=== PATIENT | male | born 1945 | race Caucasian/White ===

== ENCOUNTER 2021-12-23 09:46 | Emergency (ER) | payer MEDICARE, SELFPAY ==
[2021-12-23 09:49] VITALS: BP 159/76; PULSE 68; RESP 20; TEMP 36.4; O2SAT 95; BMI 31.1
--- NOTE | 2021-12-23 10:31 | ED.NURSE ---
Pt cleaned up and clean bedding, gown, and brief placed. Pt has start of pressure sore on buttocks and skin breakdown in groin. advised.
--- NOTE | 2021-12-23 10:52 | ED.MALEGU ---
HPI - Male Genitourinary General Chief complaint: Urogenital Problems, Male Stated complaint: urinary incontinence Time Seen by Provider: 12/23/21 10:47 History of Present Illness HPI Narrative: This 76-year-old male comes in because of urinary incontinence that began early this morning about 6 hours prior to arrival. He states that he has had incontinence in the past. He lives alone at home and states that everything is going okay there. He states that he is placing some cream on a sore on his bottom. He states that he can get up and take care of daily activities without any problem. He denies having any fevers. Related Data Home Medications Medication Instructions Recorded Confirmed allopurinol 100 mg tablet 200 mg PO DAILY 12/23/21 12/23/21 amlodipine 5 mg tablet 5 mg PO DAILY 12/23/21 12/23/21 apixaban 5 mg tablet (Eliquis) 5 mg PO DAILY 12/23/21 12/23/21 atorvastatin 80 mg tablet 80 mg PO DAILY 12/23/21 12/23/21 carvedilol 25 mg tablet 25 mg PO Q12H 12/23/21 12/23/21 clopidogrel 75 mg tablet 75 mg PO DAILY 12/23/21 12/23/21 ergocalciferol (vitamin D2) 1,250 1,250 mcg PO DIRECTED 12/23/21 12/23/21 mcg (50,000 unit) capsule furosemide 40 mg tablet mg PO Q12H 12/23/21 glipizide 10 mg tablet 10 mg PO DAILY 12/23/21 12/23/21 hydralazine 25 mg tablet 25 mg PO Q8H 12/23/21 12/23/21 hydrocodone 7.5 mg-acetaminophen 1 tab PO Q6H PRN 12/23/21 12/23/21 325 mg tablet isosorbide mononitrate 120 mg 120 mg PO BID 12/23/21 12/23/21 tablet,extended release 24 hr nystatin 100,000 unit/gram topical 1 applic topical TID 12/23/21 12/23/21 powder (Nystop) omeprazole 20 mg capsule,delayed 20 mg PO DAILY 12/23/21 12/23/21 release pravastatin 40 mg tablet 40 mg PO HS 12/23/21 12/23/21 tamsulosin 0.4 mg capsule 0.8 mg PO DAILY 12/23/21 12/23/21 Allergies Allergy/AdvReac Type Severity Reaction Status Date / Time No Known Drug Allergies Allergy Verified 12/23/21 09:59 Review of Systems Status of ROS: Reports: 10 or more systems reviewed and unremarkable except as noted in History and below Narrative: Constitutional: No fevers, no weight gain or loss. Eyes: No discharge. No vision changes. HENT: No congestion, no sore throat, no ear pain. Cardiovascular: No chest pain, no palpitations. Respiratory: No shortness of breath, no wheezes, no cough. Gastrointestinal: No abdominal pain, no vomiting, no diarrhea. Genitourinary: Urinary incontinence. No hematuria or cloudy urine. No pain when passing urine. He denies any sign of urinary retention. Musculoskeletal: Normal range of motion. Skin: No rashes, no pruritis. Neurological: No dizziness, weakness, sensory change, speech change. Endo/Heme/Allergies: No bruising or bleeding. No polydipsia. Pysch: no suicidality, no anxiety, no insomnia. All other systems reviewed and are negative. [facility] Social History Smoking Status: Never smoker Do you use any of these nicotine containing products: None How often do you have a drink containing alcohol: never AUDIT-C Alcohol total score: 0 Non-prescribed substance use: denies use Exam Narrative: Exam Narrative: Constitutional: Well-developed, well-nourished, no acute distress. HEENT: Normocephalic, atraumatic. Neck: Normal range of motion. Nontender. Supple. Heart: Regular. No murmurs. Normal rate. Intact distal pulses. Lungs: Clear to auscultation. No chest discomfort. No wheezes, rhonchi, or rales. Abdomen: Normal bowel sounds. Nontender. No rebound tenderness. Genitalia: Deferred. Back: No midline tenderness. Normal range of motion. Extremities: Normal range of motion. No injury. Skin: No rash. Warm. No erythema or pallor. Neurologic: No altered sensation. No weakness. Alert and oriented. Psychiatric: No suicidality. No anxiety or depression. No insomnia. Nursing notes and vitals signs are reviewed. Const: Vital Signs, click to edit/add: Vital Signs - 24 hr 12/23/21 09:49 Temperature 97.5 F L Pulse Rate [Right Pulse Oximeter] 68 Respiratory Rate 20 Blood Pressure [Ri ght Upper Arm] 159/76 H Pulse Oximetry 95 Oxygen Delivery Me thod Room Air Course Vital Signs Vital signs: Initial Vital Signs Temperature 97.5 F L 12/23/21 09:49 Temperature Source Temporal Artery Scan 12/23/21 09:49 Pulse Rate 68 12/23/21 09:49 Respiratory Rate 20 12/23/21 09:49 Blood Pressure 159/76 H 12/23/21 09:49 Blood Pressure Mean 103 12/23/21 09:49 Blood Pressure Position Semi-Fowlers 12/23/21 09:49 Pulse Oximetry 95 12/23/21 09:49 Oxygen Delivery Method 12/23/21 09:49 Vital Signs Temperature 97.5 F L 12/23/21 09:49 Pulse Rate 68 12/23/21 09:49 Respiratory Rate 20 12/23/21 09:49 Blood Pressure 159/76 H 12/23/21 09:49 Pulse Oximetry 95 12/23/21 09:49 Oxygen Delivery Method 12/23/21 09:49 Temperature 97.5 F L 12/23/21 09:49 Pulse Rate 68 12/23/21 09:49 Respiratory Rate 20 12/23/21 09:49 Blood Pressure 159/76 H 12/23/21 09:49 Pulse Oximetry 95 12/23/21 09:49 Oxygen Delivery Method 12/23/21 09:49 MDM - Male Genitourinary MDM Narrative Medical decision making narrative: This patient comes in with urinary incontinence. This is not a new symptom for him. A bladder scan shows 51 mL of urine so he is not retaining urine. Urinalysis also shows no sign of infection. The patient lives alone at home and there was some concern about his ability to care for himself. He repeatedly states that everything seems to be doing well at home. I did ask if he would be interested in a social service consult to further evaluate this and be come aware of resources. He was agreeable to this plan. Molecular Technologist did offer services which he generally was not interested in. He is of sound mind and able to make appropriate decisions for himself. He is okay medically to return home. I advised that he use Depends if he is having ongoing urinary incontinence. Lab Data Labs: Lab Results 12/23/21 Range/Units 11:40 Urine Color Yellow (Yellow) Urine Appearance Clear (Clear) Urine pH 7.5 (5.0-8.5) Ur Specific [place] 1.015 (1.000-1.030) Urine Protein Trace A (Negative) Urine Glucose (UA) Negative (Negative) Urine Ketones Negative (Negative) Urine Blood Negative (Negative) Urine Nitrite Negative (Negative) Urine Bilirubin Negative (Negative) Urine Urobilinogen 1.0 (0.2-1.0) Ur Leukocyte Esterase Negative (Negative) Urine RBC 0-2 (0-2) Urine WBC 0-2 (0-5) Ur Squamous Epith Cells Few (None-Few) Urine Bacteria None (None) Discharge Plan Discharge Clinical Impression: Bladder incontinence Patient Disposition: Home, Self-Care Condition: Stable Additional Instructions: Continue current plans. Use Depends if urinary incontinence is persistent. Follow up with MD or return if worsening. Prescriptions: No Action allopurinol 100 mg tablet 200 mg PO DAILY Label Comments: TAKE 2 TABLETS BY MOUTH ONCE DAILY amlodipine 5 mg tablet 5 mg PO DAILY Label Comments: TAKE 1 TABLET BY MOUTH ONCE DAILY Eliquis 5 mg tablet 5 mg PO DAILY Label Comments: TAKE 1 TABLET BY MOUTH IN THE MORNING AND 1 IN THE EVENING atorvastatin 80 mg tablet 80 mg PO DAILY Label Comments: TAKE 1 TABLET BY MOUTH AT BEDTIME carvedilol 25 mg tablet 25 mg PO Q12H Label Comments: TAKE 1 TABLET BY MOUTH IN THE MORNING AND 1 IN THE EVENING WITH MEALS clopidogrel 75 mg tablet 75 mg PO DAILY Label Comments: TAKE 1 TABLET BY MOUTH ONCE DAILY ergocalciferol (vitamin D2) 1,250 mcg (50,000 unit) capsule 1,250 mcg PO DIRECTED Label Comments: TAKE 1 CAPSULE BY MOUTH EVERY MONDAY AND MONDAY furosemide 40 mg tablet PO Q12H Label Comments: TAKE 1 TABLET BY MOUTH EVERY MORNING AND 1 TABLET EVERY AFTERNOON. HOLD IF WEIGHT LESS THAN 220. TAKE 2 TABS TWICE DAILY IF WEIGHT GREATER THAN 230 glipizide 10 mg tablet 10 mg PO DAILY Label Comments: TAKE 1 TABLET BY MOUTH ONCE DAILY BEFORE A MEAL hydralazine 25 mg tablet 25 mg PO Q8H Label Comments: TAKE 1 TABLET BY MOUTH EVERY 8 HOURS hydrocodone-acetaminophen 7.5-325 mg tablet 1 tab PO Q6H PRN Label Comments: TAKE 1 TABLET BY MOUTH EVERY 6 HOURS NEEDED FOR PAIN . DO NOT EXCEED 4000 MG OF ACETAMINOPHEN PER 24 HOURS isosorbide mononitrate 120 mg tablet extended release 24 hr 120 mg PO BID Label Comments: TAKE 1 TABLET BY MOUTH TWICE DAILY BEFORE MEAL(S) nystatin [Nystop] 100,000 unit/gram powder 1 applic TOPICAL TID Label Comments: APPLY 1 STRIP TOPICALLY TO AFFECTED AREA THREE TIMES DAILY omeprazole 20 mg capsule,delayed release(DR/EC) 20 mg PO DAILY Label Comments: TAKE 1 CAPSULE BY MOUTH ONCE DAILY BEFORE A MEAL pravastatin 40 mg tablet 40 mg PO HS Label Comments: TAKE 1 TABLET BY MOUTH AT BEDTIME tamsulosin 0.4 mg capsule 0.8 mg PO DAILY Label Comments: TAKE 2 CAPSULES BY MOUTH ONCE DAILY AFTER A MEAL Follow Up/Referrals: Jose Luis Patel MD [Primary Care Provider] - Stand Alone Forms: Workable Info Instructions
[2021-12-23 11:50] LABS: Appearance Urine Clear (Clear); Bilirubin Urine Negative (Negative); Blood Urine Negative (Negative); Color Urine Yellow (Yellow); Glucose Urine Negative (Negative); Ketones Urine Negative (Negative); Leukocyte Esterase Urine Negative (Negative); Nitrite Urine Negative (Negative); Protein Urine Trace (Negative); Specific Gravity Urine 1.015 (1.000-1.030); pH Urine 7.5 (5.0-8.5)
[2021-12-23 12:01] LABS: RBC Urine 0-2 (0-2); Squamous Epithelial Cell Urine Few (None-Few); WBC Urine 0-2 (0-5)
[2021-12-23 12:30] VITALS: BP 144/69; PULSE 58; RESP 14; O2SAT 96
[2021-12-23 13:00] VITALS: BP 150/67; PULSE 67; RESP 14; O2SAT 96
[2021-12-23 13:30] VITALS: BP 158/69; PULSE 63; RESP 14; O2SAT 96
[2021-12-23 14:00] VITALS: BP 150/74; PULSE 64; RESP 14; O2SAT 96
--- NOTE | 2021-12-23 14:18 | PC.SOCIAL ---
Social work: Met with pt at request of for discharge planning. t states he lives alone on first floor of apartment building in [place]. Pt reports he has no concerns regarding safety at home and is able to meet all of his needs. Pt does all his own cooking, cleaning and driving. Pt states he has family and friends he could call on if needed, but does not feel he needs additional assistance at this time. Provided pt with resource list for [id number] for [facility] and a list of home delivered meal services. Pt states he will consider if this is a helpful resource and is capable of arranging this if needed. Pt states his brother James will pick him up for transport home at discharge. Pt is aware of how to contact case management social worker if additional resources are needed.
== END 2021-12-23 14:34 | disposition home or self-care (01) ==
PROVIDERS: Emergency Provider Emergency Medicine Emergency Medical Services; PCP Family Medicine
DX: R32 Unspecified urinary incontinence (principal)
CPT/HCPCS: 81001; 99283; 99285

== ENCOUNTER 2022-01-05 11:05 | Inpatient (IN) | payer MEDICARE, SELFPAY ==
[2022-01-05] VITALS (11 sets, daily range): BP systolic 152–181; BP diastolic 68–91; PULSE 54–64; RESP 10–22; TEMP 36.6–37.1; O2SAT 94–98; BMI 32.1
--- NOTE | 2022-01-05 11:40 | ED.FALL ---
HPI - Fall General Time Seen by Provider: 11:41 Date Seen: 01/05/22 Chief Complaint: Fall/Minor Trauma Stated Complaint: Fell out of bed Time Seen by Provider: 01/05/22 11:40 Source: patient, RN notes reviewed and old records reviewed Mode of arrival: EMS Limitations: no limitations History of Present Illness HPI Narrative: Kobe is a very pleasant 76-year-old gentleman who lives alone and now comes in to the emergency room via EMS after being found on the floor near his bathroom. Patient notes that he got up at 0100 hours to use the bathroom and fell on the floor. This was a carpeted floor. He denies being knocked out but the next thing he knew his brother was waking him up at 1000 hours. EMS was called and a C-collar was placed although he is very unhappy about this. At this time he denies any headache, neck pain, difficulty breathing, chest pain, back pain, numbness or tingling. Nursing had removed his collar as it was making him very agitated and actually causing him to move more. He is cooperative and lying still at this time. Patient is stating that he is not able to live alone anymore and would like to be placed in assisted living or a intermediate. He denies recent fever, cough, cold. Nursing staff notes that he has redness along his groin. Patient denies any prodromal symptoms prior to fall. Patient had been seen on December 23 in our emergency room for incontinence. There was no evidence of UTI. MD complaint: fall Related Data Home Medications Medication Instructions Recorded Confirmed allopurinol 100 mg tablet 200 mg PO DAILY 12/23/21 12/23/21 amlodipine 5 mg tablet 5 mg PO DAILY 12/23/21 12/23/21 apixaban 5 mg tablet (Eliquis) 5 mg PO DAILY 12/23/21 12/23/21 atorvastatin 80 mg tablet 80 mg PO DAILY 12/23/21 12/23/21 carvedilol 25 mg tablet 25 mg PO Q12H 12/23/21 12/23/21 clopidogrel 75 mg tablet 75 mg PO DAILY 12/23/21 12/23/21 ergocalciferol (vitamin D2) 1,250 1,250 mcg PO DIRECTED 12/23/21 12/23/21 mcg (50,000 unit) capsule furosemide 40 mg tablet mg PO Q12H 12/23/21 glipizide 10 mg tablet 10 mg PO DAILY 12/23/21 12/23/21 hydralazine 25 mg tablet 25 mg PO Q8H 12/23/21 12/23/21 hydrocodone 7.5 mg-acetaminophen 1 tab PO Q6H PRN 12/23/21 12/23/21 325 mg tablet isosorbide mononitrate 120 mg 120 mg PO BID 12/23/21 12/23/21 tablet,extended release 24 hr nystatin 100,000 unit/gram topical 1 applic topical TID 12/23/21 12/23/21 powder (Nystop) omeprazole 20 mg capsule,delayed 20 mg PO DAILY 12/23/21 12/23/21 release pravastatin 40 mg tablet 40 mg PO HS 12/23/21 12/23/21 tamsulosin 0.4 mg capsule 0.8 mg PO DAILY 12/23/21 12/23/21 Allergies Allergy/AdvReac Type Severity Reaction Status Date / Time No Known Drug Allergies Allergy Verified 01/05/22 11:12 Review of Systems Status of ROS: Reports: 10 or more systems reviewed and unremarkable except as noted in History and below Const: Denies: fever, chills or change in weight Eyes: Reports: eye discharge and dry eyes; Denies: change in vision ENMT: Denies: throat pain, neck pain, difficulty swallowing, hoarseness or vertigo Cardio: Denies: chest pain, palpitations, edema, swelling of feet/ankles or shortness of breath with exertion Resp: Denies: shortness of breath, cough or wheezing GI: Denies: abdominal pain, nausea, vomiting, diarrhea or difficulty swallowing : Denies: painful urination Musculo: Denies: back pain or neck pain Integ/Breast: Reports: redness (Left groin) Neuro: Denies: headache, numbness in extremities, weakness in extremities or vertigo Psych: Denies: anxiety Endo: Denies: excessive urination or excessive thirst Jayant/Lymph: Denies: easy bruising Allergy/Immuno: Denies: wheezing PFSH PFSH Social History Smoking Status: Never smoker Do you use any of these nicotine containing products: None Second hand tobacco smoke exposure: No How often do you have a drink containing alcohol: never AUDIT-C Alcohol total score: 0 Non-prescribed substance use: denies use service: No Exam Narrative: Exam Narrative: Patient is alert and oriented. Patient very much minimizes complaints. No acute distress. GCS of 15. Patient has right periorbital erythema. Both eyelashes have yellowish discharge. EOM is full. Pupils are reactive. Patient has dry mucous membranes. His speech is normal. Head is otherwise atraumatic normocephalic. No midline cervical tenderness. Heart with regular rate and rhythm. Lungs are clear to auscultation. Abdomen is soft nontender. Patient has erythema with discharge in the right groin. Well-demarcated with no significant drainage. Lower extremity show bruises in various stages of healing, nothing new. Right knee with well-healed surgical incision. Able to lift both legs independently. Bottom of both feet are covered in dirt. No significant lower extremity edema. Examination of the back shows no tenderness down the thoracic or lumbar spine. There is a small area of new bruising over approximately L1. But no underlying tenderness. Patient was able to sit up in bed with assistance. Const: Vital Signs, click to edit/add: Vital Signs - 24 hr 01/05/22 11:13 01/05/22 11:59 01/05/22 12:01 Temperature 98 F Pulse Rate [Apical ] 62 Respiratory Rate 18 Blood Pressure [Le ft Upper Arm] 176/85 H Pulse Oximetry 95 98 96 Oxygen Delivery Me thod Room Air 01/05/22 11:15 01/05/22 11:30 01/05/22 12:00 Temperature Pulse Rate [Apical ] 64 57 L 54 L Respiratory Rate 22 19 Blood Pressure [Le ft Upper Arm] 176/85 H 156/68 H 158/69 H Pulse Oximetry 95 95 Oxygen Delivery Me thod Room Air 01/05/22 12:30 Temperature Pulse Rate [Apical ] 54 L Respiratory Rate 17 Blood Pressure [Le ft Upper Arm] 157/70 H Pulse Oximetry 94 Oxygen Delivery Me thod Documenting provider has reviewed patient's vital signs: yes Course Course Hospital Course: At this time patient's desires to be placed in assisted living or intermediate as he states that he needs more help. He denies any pain at this point but he does appear to be min minimizing that. Given the fact that he is on Eliquis and Plavix and was involved in a fall and inability to arise from the ground for 9 hours, we will go forward with head, cervical spine, facial CTs as well as chest x-ray. Will also check CBC, comprehensive panel, urinalysis, CRP, lactate, creatinine kinase. Patient will placed on panel monitor and oximetry. Will also give patient 500 mL normal saline. Reevaluation(s) Reevaluation #1: Nursing staff at notifies me that patient's hemoglobin is 7.5. Reevaluation #2: Patient has been resting comfortably in the emergency room. Vital Signs Vital signs: Initial Vital Signs Temperature 98 F 01/05/22 11:13 Temperature Source Temporal Artery Scan 01/05/22 11:13 Pulse Rate 62 01/05/22 11:13 Respiratory Rate 18 01/05/22 11:13 Blood Pressure 176/85 H 01/05/22 11:13 Blood Pressure Mean 115 01/05/22 11:13 Blood Pressure Position Supine 01/05/22 11:13 Pulse Oximetry 95 01/05/22 11:13 Oxygen Delivery Method 01/05/22 11:13 Vital Signs Temperature 98 F 01/05/22 11:13 Pulse Rate 62 01/05/22 11:13 Respiratory Rate 18 01/05/22 11:13 Blood Pressure 176/85 H 01/05/22 11:13 Pulse Oximetry 95 01/05/22 11:13 Oxygen Delivery Method 01/05/22 11:13 Temperature 98 F 01/05/22 11:13 Pulse Rate 61 01/05/22 16:00 Respiratory Rate 10 L 01/05/22 16:00 Blood Pressure 178/91 H 01/05/22 16:00 Pulse Oximetry 94 01/05/22 12:30 Oxygen Delivery Method 01/05/22 11:30 MDM - Fall MDM Narrative Medical decision making narrative: 1. Fall-no evidence of skull fracture, intracranial bleed, cervical spine fracture or other injury at this time. No evidence of cardiac arrhythmia to explain fall. However, patient does have hemoglobin of 7.5 with previous value of 8.6. 2. Anemia -hemoglobin 7.5. Type and screen ordered. No evidence of hypoxia or tachycardia at this time although patient is rate controlled. He is also on Eliquis. 3. Failure to thrive -patient notes inability to care for self and is requesting assisted living versus intermediate care. 4. Chronic renal insufficiency-baseline appears to be 2.3. Today's value is 2.5 creatinine. Patient is given 500 mL of normal saline. 5. Right maxillary sinus opacification-questionable fungal infection. 6. Left groin tinea 4. Disposition-admitted under the care of Dr. Garcia. Medical Records Attestation: I reviewed the patient's medical records. Lab Data Attestation: I reviewed the patient's lab results. Labs: Lab Results 01/05/22 01/05/22 01/05/22 Range/Units 12:23 12:30 12:30 WBC 7.17 (4.50-11.00) K/uL RBC 2.36 L (4.30-5.90) m/uL Hgb 7.5 L* (13.5-17.5) gm/dL Hct 23.3 L (37.0-53.0) % MCV 99 (80-100) fL MCH 32 (26-34) pg MCHC 32 (32-36) gm/dL RDW Coeff of Ashish 13.4 (11.5-15.5) % Plt Count 319 (140-440) K/uL Neut % (Auto) 83.0 H (42.0-72.0) % Lymph % (Auto) 6.6 L (20-44) % [place] % (Auto) 7.8 (0.0-11.0) % Eos % (Auto) 2.1 (0.0-7.0) % Baso % (Auto) 0.4 (0.0-3.0) % Neut # (Auto) 6.00 (1.7-7.0) K/uL Lymph # (Auto) 0.50 L (0.90-2.90) K/uL [place] # (Auto) 0.60 (0.00-0.90) K/UL Eos # (Auto) 0.15 (0.00-0.50) K/uL Baso # (Auto) 0.03 (0.00-0.30) K/uL Abs Immat Gran (auto) 0.01 (0.00-0.30) K/uL Sodium 138 (135-149) mmol/L Potassium 4.4 (3.6-5.1) mmol/L Chloride 108 (96-114) mmol/L Carbon Dioxide 23 (20-32) mmol/L BUN 74 H (7-30) mg/dL Creatinine 2.5 H (0.5-1.5) mg/dL Estimated Creat Clear 25.94 Estimated GFR 26 ml/min Glucose 158 H (60-115) mg/dL Lactate (0.5-1.9) mmol/L Calcium 9.0 (8.4-10.6) mg/dL Magnesium 1.9 (1.5-2.6) mg/dL Total Bilirubin 1.0 (0.1-1.5) mg/dL AST 33 (12-35) U/L ALT 19 (4-50) U/L Alkaline Phosphatase 103 (40-150) U/L Total Creatine Kinase 49 L (54-186) U/L C-Reactive Protein 7.6 H (0.5-1.0) mg/dL Total Protein 7.1 (6.0-8.3) g/dL Albumin 3.6 (3.3-5.0) g/dL SARS-CoV-2 (PCR) (Negative) POC Troponin I 0.02 (0.01-0.04) ng/ml Blood Type Antibody Screen 01/05/22 01/05/22 01/05/22 Range/Units 12:30 12:51 13:40 WBC (4.50-11.00) K/uL RBC (4.30-5.90) m/uL Hgb (13.5-17.5) gm/dL Hct (37.0-53.0) % MCV (80-100) fL MCH (26-34) pg MCHC (32-36) gm/dL RDW Coeff of Ashish (11.5-15.5) % Plt Count (140-440) K/uL Neut % (Auto) (42.0-72.0) % Lymph % (Auto) (20-44) % [place] % (Auto) (0.0-11.0) % Eos % (Auto) (0.0-7.0) % Baso % (Auto) (0.0-3.0) % Neut # (Auto) (1.7-7.0) K/uL Lymph # (Auto) (0.90-2.90) K/uL [place] # (Auto) (0.00-0.90) K/UL Eos # (Auto) (0.00-0.50) K/uL Baso # (Auto) (0.00-0.30) K/uL Abs Immat Gran (auto) (0.00-0.30) K/uL Sodium (135-149) mmol/L Potassium (3.6-5.1) mmol/L Chloride (96-114) mmol/L Carbon Dioxide (20-32) mmol/L BUN (7-30) mg/dL Creatinine (0.5-1.5) mg/dL Estimated Creat Clear Estimated GFR ml/min Glucose (60-115) mg/dL Lactate 0.8 (0.5-1.9) mmol/L Calcium (8.4-10.6) mg/dL Magnesium (1.5-2.6) mg/dL Total Bilirubin (0.1-1.5) mg/dL AST (12-35) U/L ALT (4-50) U/L Alkaline Phosphatase (40-150) U/L Total Creatine Kinase (54-186) U/L C-Reactive Protein (0.5-1.0) mg/dL Total Protein (6.0-8.3) g/dL Albumin (3.3-5.0) g/dL SARS-CoV-2 (PCR) Negative SARS-CoV-2 (Negative) POC Troponin I (0.01-0.04) ng/ml Blood Type O Positive Antibody Screen NEGATIVE Imaging Data Chest x-ray: Attestation: I have reviewed the pertinent imaging results. My impression: chronic lung markings Radiologist's impression: No acute cardiopulmonary disease. CT scan - head: Attestation: I have reviewed the pertinent imaging results. My impression: Opacification of the right maxillary sinus. 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 Radiologist's impression: Brain parenchyma and extra-axial spaces: Mild generalized cerebral and cerebellar atrophy. 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 Nonspecific low attenuation white matter changes consistent with chronic microvascular disease. No sign of mass, hemorrhage, or midline shift. Skull base and calvarium: Heterogeneous high density areas in the right maxillary sinus. Opacification of the right ethmoid air cells and right frontal sinus. The other visualized paranasal sinuses and mastoid air cells demonstrate no acute or significant findings. The visualized orbits are grossly unremarkable. No skull fractures. IMPRESSION: 1. No acute intracranial abnormality. 2. High-density material in the right maxillary sinus is nonspecific, and could be hemorrhage or infection, particularly fungal etiologies. Cervical spine x-ray: Attestation: I have reviewed the pertinent imaging results. Radiologist's impression: Vertebrae: Reversal of normal lordosis may be related to muscle spasm or positioning. No fractures or suspicious bony lesions.? Discs and facet joints: Multilevel degenerative changes in the form of disc space narrowing, subchondral sclerosis, and marginal osteophyte formation. Osteoarthritic changes involve the apophyseal joints throughout the cervical spine. Extraspinal findings: Prevertebral soft tissues, visualized airway, and visualized lungs are unremarkable.? IMPRESSION: Degenerative changes. No acute abnormality. orbital CT: My impression: no evidence of fracture Radiologist's impression: no evidence of fracture ECG Data Attestation: I personally reviewed and interpreted this ECG as follows: ECG interpretation date: 01/05/22 Interpretation: Sinus bradycardia at a rate of 57. There is first-degree AV block with a WI interval of 0.236. No acute ST or T-wave changes. 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 Discharge Plan Discharge Clinical Impression: Anemia, Chronic kidney insufficiency, Fall Patient Disposition: Admitted As Inpatient Condition: Improved
--- NOTE | 2022-01-05 11:58 | CRLHL7_ITS ---
For Patients: As a result of the Cures Act, medical imaging exams and procedure reports are released immediately into your electronic medical record. You may view this report before your referring provider. If you have questions, please contact your health care provider. INDICATION: Fall. TECHNIQUE: CT cervical spine without contrast. Coronal and sagittal reformats were generated. COMPARISON: None. FINDINGS: Vertebrae: Reversal of normal lordosis may be related to muscle spasm or positioning. No fractures or suspicious bony lesions. Discs and facet joints: Multilevel degenerative changes in the form of disc space narrowing, subchondral sclerosis, and marginal osteophyte formation. Osteoarthritic changes involve the apophyseal joints throughout the cervical spine. Extraspinal findings: Prevertebral soft tissues, visualized airway, and visualized lungs are unremarkable. IMPRESSION: Degenerative changes. No acute abnormality. Please note that all CT scans at this facility use dose modulation, iterative reconstruction, and/or weight-based dosing when appropriate to reduce radiation dose to as low as reasonably achievable. Dictated by Jeet Dyson MD @ 01/05/2022 1:50:37 PM (Electronically Signed)
--- NOTE | 2022-01-05 11:58 | CRLHL7_ITS ---
For Patients: As a result of the Cures Act, medical imaging exams and procedure reports are released immediately into your electronic medical record. You may view this report before your referring provider. If you have questions, please contact your health care provider. INDICATION: Fall. TECHNIQUE: Chest 1 views. COMPARISON: Chest x-ray from 07/16/2021. FINDINGS: Lungs: Clear lungs. No consolidation. Pleura: No pleural effusion or pneumothorax. Heart and Mediastinum: The cardiomediastinal silhouette is upper normal. The vessels are unremarkable. Bones: Degenerative changes of the right shoulder. IMPRESSION: No acute cardiopulmonary disease. Dictated by Jeet Dyson MD @ 01/05/2022 1:36:27 PM (Electronically Signed)
--- NOTE | 2022-01-05 11:58 | CT_ITS ---
Patient: EUGENIA SOLIS Facility:?[facility] Patient ID:?[id number] Site Patient ID:?[id number]. Site :?[id number] Study:?CT-Facial w/o orbits bilateral-01/05/2022 1:26:12 PM Ordering Physician:?Maxx Roca Final Report: INDICATION: Fall. TECHNIQUE: CT maxillofacial without contrast. Coronal and sagittal reformats were generated. COMPARISON: None. FINDINGS: Facial bones: No fractures or bone lesions. Specifically the nasal bones, temporomandibular joints, maxilla, and mandible appear intact. Orbits and globes: Unremarkable. Globes are intact. No sign of intraorbital hemorrhage or emphysema. Sinuses: Opacification of the right maxillary sinus, with heterogeneous density and areas of central hypodensity. Areas of opacification of the ethmoid sinuses, right greater than left. Opacified right frontal sinus. The other paranasal sinuses are clear. Soft tissues: Unremarkable. IMPRESSION: 1. No facial fractures. 2. Opacification of the right maxillary sinus with high-density material could be hematoma or infection, possibly fungal. Opacification of the ethmoid air cells and right frontal sinus. Please note that all CT scans at this facility use dose modulation, iterative reconstruction, and/or weight-based dosing when appropriate to reduce radiation dose to as low as reasonably achievable. Dictated by Jeet Dyson MD @ 01/05/2022 1:54:15 PM Signed by:?Jeet Dyson MD @01/05/2022 1:54:15 PM (Electronic Signature)
--- NOTE | 2022-01-05 12:06 | SUR.ANES ---
No Anesthesia billing. - Eligio Skinner CRNA
[2022-01-05 12:37] LABS: Lactate* 0.8 mmol/L (0.5-1.9)
[2022-01-05 12:41] LABS: Basophils Absolute Auto 0.03 K/uL (0.00-0.30); Basophils Percent Auto 0.4 % (0.0-3.0); Eosinophils Absolute Auto 0.15 K/uL (0.00-0.50); Eosinophils Percent Auto 2.1 % (0.0-7.0); Hematocrit 23.3 % (37.0-53.0); Immature Granulocytes Abs Auto 0.01 K/uL (0.00-0.30); Lymphocytes Percent Auto 6.6 % (20-44); Mean Corpuscular HGB Conc 32 gm/dL (32-36); Mean Corpuscular Hemoglobin 32 pg (26-34); Mean Corpuscular Volume 99 fL (80-100); Monocytes Percent Auto 7.8 % (0.0-11.0); Platelet Count* 319 K/uL (140-440); RDW Coefficient of Variation % 13.4 % (11.5-15.5); Red Blood Count 2.36 m/uL (4.30-5.90); White Blood Count* 7.17 K/uL (4.50-11.00)
[2022-01-05 12:53] LABS: Hemoglobin* 7.5 gm/dL (13.5-17.5); Slide Review Reflex No
--- NOTE | 2022-01-05 12:57 | ED.NURSE ---
call from lab critical , dr palomo updated
[2022-01-05] MEDS: 0.9 % SODIUM CHLORIDE 500 ML 500 ML IV (13:04)
[2022-01-05 13:14] LABS: Albumin* 3.6 g/dL (3.3-5.0); Chloride* 108 mmol/L (96-114); Sodium* 138 mmol/L (135-149)
[2022-01-05 13:15] LABS: Potassium* 4.4 mmol/L (3.6-5.1)
[2022-01-05 13:16] LABS: Creatinine* 2.5 mg/dL (0.5-1.5); Est. Creatinine Clearance* 25.94; Estimated Glomerular Filt Rate 26 ml/min
[2022-01-05 13:17] LABS: Alkaline Phosphatase* 103 U/L (40-150); Aspartate Amino Transferase* 33 U/L (12-35); Blood Urea Nitrogen* 74 mg/dL (7-30); Carbon Dioxide* 23 mmol/L (20-32); Creatine Kinase* 49 U/L (54-186); Total Protein* 7.1 g/dL (6.0-8.3)
[2022-01-05 13:18] LABS: Alanine Aminotransferase* 19 U/L (4-50); Glucose* 158 mg/dL (60-115); Magnesium* 1.9 mg/dL (1.5-2.6)
[2022-01-05 13:20] LABS: C Reactive Protein* 7.6 mg/dL (0.5-1.0)
[2022-01-05 13:35] LABS: Troponin, Point-of-Care* 0.02 ng/ml (0.01-0.04)
[2022-01-05 13:50] LABS: SARS PCR* Negative SARS-CoV-2 (Negative)
--- NOTE | 2022-01-05 16:49 | P.IMHP_ITS ---
Hospitalist- H&P: HPI History of Present Illness Date Seen: 01/05/22 Chief complaint: Fell out of bed Narrative: Kobe Melgar is a 76 year old male with past medical history of CKD3, Anemia of CKD, hx of Atrial fibrillation (on eliquis), HTN presenting for evaluation of fall. The patient fell out his bed. He does not think he hit his head. This morning his brother came to his residence and found him in his bedroom on the floor. He was too weak to get up. He denied LOC. He denied chest pain, chest pressure, sob. He denies melena or hematochezia. He presented to ED where notable workup showed hgb 7.5, Cr 2.5 (Baseline 2.3-24). CT head and cervical spine showed no acute fx or bleed; XCR no acute infiltrate. Patient states he can no longer live alone and needs NH referral; placement. He currently feels at baseline state. Review of Systems Status of ROS: Reports: 10 or more systems reviewed and unremarkable except as noted in History and below PFSH PFS Social History Smoking Status: Never smoker Do you use any of these nicotine containing products: None Second hand tobacco smoke exposure: No How often do you have a drink containing alcohol: never AUDIT-C Alcohol total score: 0 Non-prescribed substance use: denies use Meds Home Medications and Allergies Home Medications Medication Instructions Recorded Confirmed Type amlodipine 5 mg tablet 5 mg PO DAILY 12/23/21 01/05/22 History apixaban 5 mg tablet (Eliquis) 5 mg PO DAILY 12/23/21 01/05/22 History atorvastatin 80 mg tablet 80 mg PO DAILY 12/23/21 01/05/22 History carvedilol 25 mg tablet 25 mg PO Q12H 12/23/21 01/05/22 History clopidogrel 75 mg tablet 75 mg PO DAILY 12/23/21 01/05/22 History furosemide 40 mg tablet 40 mg PO BID 12/23/21 01/05/22 History glipizide 10 mg tablet 10 mg PO DAILY 12/23/21 01/05/22 History hydralazine 25 mg tablet 25 mg PO TID 12/23/21 01/05/22 History hydrocodone 7.5 mg-acetaminophen 1 tab PO Q6H PRN 12/23/21 01/05/22 History 325 mg tablet isosorbide mononitrate 120 mg 120 mg PO .bidac 12/23/21 01/05/22 History tablet,extended release 24 hr omeprazole 20 mg capsule,delayed 20 mg PO DAILY 12/23/21 01/05/22 History release tamsulosin 0.4 mg capsule 0.8 mg PO DAILY 12/23/21 01/05/22 History Allergies Allergy/AdvReac Type Severity Reaction Status Date / Time No Known Drug Allergies Allergy Verified 01/05/22 11:12 Exam Narrative: Exam Narrative: Gen: NAD HEENT: EOMI MMM Neck: Supple CV: IRIR s1s2 L: CTAB Abd: soft, nt, nd Neuro: alert, oriented, nonfocal screening exam MSK: age appropriate muscle mass Const: Vital Signs, click to edit/add: Vital Signs - 24 hr 01/05/22 11:13 01/05/22 11:59 01/05/22 12:01 Temperature 98 F Pulse Rate [Apical ] 62 Respiratory Rate 18 Blood Pressure [Le ft Upper Arm] 176/85 H Pulse Oximetry 95 98 96 Oxygen Delivery Me thod Room Air 01/05/22 11:15 01/05/22 11:30 01/05/22 12:00 Temperature Pulse Rate [Apical ] 64 57 L 54 L Respiratory Rate 22 19 Blood Pressure [Le ft Upper Arm] 176/85 H 156/68 H 158/69 H Pulse Oximetry 95 95 Oxygen Delivery Me thod Room Air 01/05/22 12:30 01/05/22 16:00 Temperature Pulse Rate [Apical ] 54 L 61 Respiratory Rate 17 10 L Blood Pressure [Le ft Upper Arm] 157/70 H 178/91 H Pulse Oximetry 94 [facility]: Result Labs Labs: Short CBC 01/05/22 Range/Units 12:30 WBC 7.17 (4.50-11.00) K/uL Hgb 7.5 L* (13.5-17.5) gm/dL Hct 23.3 L (37.0-53.0) % Plt Count 319 (140-440) K/uL BMP 01/05/22 12:30 Sodium 138 Potassium 4.4 Chloride 108 Carbon Dioxide 23 BUN 74 H Creatinine 2.5 H Glucose 158 H Calcium 9.0 Cardiac Enzymes 01/05/22 Range/Units 12:30 Total Creatine Kinase 49 L (54-186) U/L Liver Function 01/05/22 Range/Units 12:30 Total Bilirubin 1.0 (0.1-1.5) mg/dL AST 33 (12-35) U/L ALT 19 (4-50) U/L Alkaline Phosphatase 103 (40-150) U/L Albumin 3.6 (3.3-5.0) g/dL Imaging CT scan - head: Radiologist's impression: Ct cervical spine IMPRESSION: Degenerative changes. No acute abnormality. Cxr IMPRESSION: No acute cardiopulmonary disease. CT head and orbitIMPRESSION: 1. No facial fractures. 2. Opacification of the right maxillary sinus with high-density material could be hematoma or infection, possibly fungal. Opacification of the ethmoid air cells and right frontal sinus. Assessment and Plan Assessment and plan (1) Chronic kidney insufficiency: Status: Acute (2) Fall: Status: Acute (3) Anemia: Status: Acute (4) Bladder incontinence: Status: Acute Plan 1. Fall; etiology unclear; possible mechanical 2. Hx of CKD III/IV 3. Anemia of Chronic Disease 4. Hx of Atrial Fibrillation ? 5. Hx of HTN 6. Generalized weakness 7. Hx of medication noncompliance Plan -admit to observation -repeat hgb obtained is 8.8 -IVF -baseline EKG -check hemoccult -PT, OT, SW consult -will obtain outpatient records in AM; currently unable to obtain EPIC records on [facility] Code Status-Full Code
[2022-01-05 17:45] LABS: Hemoglobin* 8.8 gm/dL (13.5-17.5)
[2022-01-05] MEDS: PANTOPRAZOLE SODIUM 40 MG INJ IVP (18:02)
[2022-01-05] MEDS: LACTATED RINGERS 1000 ML 1,000 ML 100 ML IV (18:02)
[2022-01-05] MEDS: ISOSORBIDE MONONITRATE ER 30 MG TAB 120 MG PO (19:51)
[2022-01-05] MEDS: carvediloL 25 MG TABLET PO (21:26)
[2022-01-05] MEDS: HYDRALAZINE 25 MG TABLET PO (21:26)
[2022-01-06] VITALS (7 sets, daily range): BP systolic 114–157; BP diastolic 56–77; PULSE 62–66; RESP 14–18; TEMP 36.5–37; O2SAT 95–97
[2022-01-06] MEDS: LACTATED RINGERS 1000 ML 1,000 ML 100 ML IV (03:28)
--- NOTE | 2022-01-06 05:31 | PC.NURSE ---
Shift Note 19-07: Pt pleasant and cooperative, VSS, afebrile, denies pain. Skin folds, groin and buttocks red and excoriated, aloe vesta cream applied with brief changes. Pt changed and off-loaded or repositioned Q2H. See eMAR for medication administration.
[2022-01-06 07:03] LABS: Basophils Absolute Auto 0.01 K/uL (0.00-0.30); Basophils Percent Auto 0.2 % (0.0-3.0); Eosinophils Absolute Auto 0.18 K/uL (0.00-0.50); Eosinophils Percent Auto 3.4 % (0.0-7.0); Hematocrit 25.5 % (37.0-53.0); Immature Granulocytes Abs Auto 0.01 K/uL (0.00-0.30); Lymphocytes Percent Auto 12.9 % (20-44); Mean Corpuscular HGB Conc 31 gm/dL (32-36); Mean Corpuscular Hemoglobin 31 pg (26-34); Mean Corpuscular Volume 100 fL (80-100); Monocytes Percent Auto 8.9 % (0.0-11.0); Neutrophils Percent Auto 74.4 % (42.0-72.0); Platelet Count* 282 K/uL (140-440); RDW Coefficient of Variation % 13.6 % (11.5-15.5); Red Blood Count 2.56 m/uL (4.30-5.90); White Blood Count* 5.29 K/uL (4.50-11.00)
[2022-01-06 07:07] LABS: Slide Review Reflex No
[2022-01-06 07:25] LABS: Chloride* 109 mmol/L (96-114); Sodium* 141 mmol/L (135-149)
[2022-01-06 07:26] LABS: Potassium* 4.3 mmol/L (3.6-5.1)
[2022-01-06 07:28] LABS: Creatinine* 2.4 mg/dL (0.5-1.5); Est. Creatinine Clearance* 27.02; Estimated Glomerular Filt Rate 27 ml/min
[2022-01-06 07:29] LABS: Blood Urea Nitrogen* 63 mg/dL (7-30); Calcium* 8.8 mg/dL (8.4-10.6); Carbon Dioxide* 22 mmol/L (20-32); Glucose* 130 mg/dL (60-115)
[2022-01-06] MEDS: ISOSORBIDE MONONITRATE ER 30 MG TAB 120 MG PO ×2 (08:47→17:35)
[2022-01-06] MEDS: TAMSULOSIN HCL 0.4 MG CAPSULE 0.8 MG PO (08:47)
[2022-01-06] MEDS: CLOPIDOGREL 75 MG TABLET PO (08:48)
[2022-01-06] MEDS: HYDRALAZINE 25 MG TABLET PO ×3 (08:48→20:36)
[2022-01-06] MEDS: FUROSEMIDE 40 MG TABLET PO ×2 (08:48→17:41)
[2022-01-06] MEDS: carvediloL 25 MG TABLET PO ×2 (08:48→20:36)
[2022-01-06] MEDS: ATORVASTATIN CALCIUM 40 MG TABLET 80 MG PO (08:48)
[2022-01-06] MEDS: APIXABAN 5 MG TABLET PO ×2 (08:52→20:36)
--- NOTE | 2022-01-06 12:54 | P.IMPN_ITS ---
Progress Note: A&P Assessment and plan (1) Fall: Status: Acute (2) Anemia: Status: Chronic (3) Chronic kidney insufficiency: Status: Chronic (4) Bladder incontinence: Status: Chronic Plan 1. Fall; suspected possible mechanical 2. Hx of CKD III/IV 3. Anemia of Chronic Disease 4. Hx of Atrial Fibrillation ? 5. Hx of HTN 6. Generalized weakness 7. Hx of medication noncompliance Plan -admit to observation -follow hgb -IVF; discontinue -PT, OT, SW consult Subjective Date Seen: 01/06/22 Interval history: decreased appetite feels baseline state denies cp denies sob Exam Narrative: Exam Narrative: Gen: NAD HEENT:? EOMI MMM CV: IRIR s1s2 L: CTAB Abd: soft, nt, nd Neuro: alert, oriented, nonfocal screening exam MSK: age appropriate muscle mass? Const: Vital Signs, click to edit/add: Vital Signs - 24 hr 01/05/22 16:00 01/05/22 16:39 01/05/22 19:00 Temperature 98.4 F 98.1 F Pulse Rate [Apical ] 61 Pulse Rate [Left R adial] 58 L 55 L Respiratory Rate 10 L 16 18 Blood Pressure [Le ft Arm] 172/84 H 181/82 H Blood Pressure [Le ft Upper Arm] 178/91 H Pulse Oximetry 97 97 Oxygen Delivery Me thod Room Air Room Air 01/05/22 22:00 01/05/22 23:00 01/06/22 03:00 Temperature 98.7 F Pulse Rate [Apical ] Pulse Rate [Left R adial] 55 L 59 L Respiratory Rate 18 16 14 Blood Pressure [Le ft Arm] 152/71 H Blood Pressure [Le ft Upper Arm] Pulse Oximetry 95 Oxygen Delivery Me thod Room Air Room Air 01/06/22 08:18 01/06/22 12:08 Temperature 98.4 F 98.2 F Pulse Rate [Apical ] Pulse Rate [Left R adial] 64 65 Respiratory Rate 18 16 Blood Pressure [Le ft Arm] 157/72 H 114/56 L Blood Pressure [Le ft Upper Arm] Pulse Oximetry 95 95 Oxygen Delivery Me thod Room Air Room Air Labs Labs: Laboratory Results - last 24 hr 01/05/22 01/05/22 01/05/22 12:23 12:30 12:51 WBC RBC Hgb Hct MCV MCH MCHC RDW Coeff of Ashish Plt Count Neut % (Auto) Lymph % (Auto) [place] % (Auto) Eos % (Auto) Baso % (Auto) Neut # (Auto) Lymph # (Auto) [place] # (Auto) Eos # (Auto) Baso # (Auto) Abs Immat Gran (auto) Sodium 138 Potassium 4.4 Chloride 108 Carbon Dioxide 23 BUN 74 H Creatinine 2.5 H Estimated Creat Clear 25.94 Estimated GFR 26 Glucose 158 H Calcium 9.0 Magnesium 1.9 Total Bilirubin 1.0 AST 33 ALT 19 Alkaline Phosphatase 103 Total Creatine Kinase 49 L C-Reactive Protein 7.6 H Total Protein 7.1 Albumin 3.6 SARS-CoV-2 (PCR) Negative SARS-CoV-2 POC Troponin I 0.02 Blood Type Antibody Screen 01/05/22 01/05/22 01/05/22 13:40 17:24 17:24 WBC RBC Hgb 8.8 L Hct MCV MCH MCHC RDW Coeff of Ashish Plt Count Neut % (Auto) Lymph % (Auto) [place] % (Auto) Eos % (Auto) Baso % (Auto) Neut # (Auto) Lymph # (Auto) [place] # (Auto) Eos # (Auto) Baso # (Auto) Abs Immat Gran (auto) Sodium Potassium Chloride Carbon Dioxide BUN Creatinine Estimated Creat Clear Estimated GFR Glucose Calcium Magnesium Total Bilirubin AST ALT Alkaline Phosphatase Total Creatine Kinase C-Reactive Protein Total Protein Albumin SARS-CoV-2 (PCR) POC Troponin I Blood Type O Positive O Positive Antibody Screen NEGATIVE NEGATIVE 01/06/22 01/06/22 05:54 05:54 WBC 5.29 RBC 2.56 L Hgb 8.0 L Hct 25.5 L MCV 100 MCH 31 MCHC 31 L RDW Coeff of Ashish 13.6 Plt Count 282 Neut % (Auto) 74.4 H Lymph % (Auto) 12.9 L [place] % (Auto) 8.9 Eos % (Auto) 3.4 Baso % (Auto) 0.2 Neut # (Auto) 3.90 Lymph # (Auto) 0.70 L [place] # (Auto) 0.50 Eos # (Auto) 0.18 Baso # (Auto) 0.01 Abs Immat Gran (auto) 0.01 Sodium 141 Potassium 4.3 Chloride 109 Carbon Dioxide 22 BUN 63 H Creatinine 2.4 H Estimated Creat Clear 27.02 Estimated GFR 27 Glucose 130 H Calcium 8.8 Magnesium Total Bilirubin AST ALT Alkaline Phosphatase Total Creatine Kinase C-Reactive Protein Total Protein Albumin SARS-CoV-2 (PCR) POC Troponin I Blood Type Antibody Screen
[2022-01-06] MEDS: PANTOPRAZOLE SODIUM 40 MG INJ IVP (17:34)
[2022-01-06] MEDS: OXYCODONE 5 MG TABLET PO (20:40)
--- NOTE | 2022-01-06 22:04 | PC.NURSE ---
Shift note [id number] Pt. pleasant and cooperative, VSS, afebrile, rated pain 4/10, PRN 5mg Oxy administered w/relief. Skin folds, groin and buttocks red, aloe vesta cream applied with brief change. Pt changed and repositioned Q2H. See eMAR for medication administration. BG was 258 at dinner time, 6 units administered. BG at HS was 150 no insulin needed per sliding scale.
[2022-01-07] VITALS (7 sets, daily range): BP systolic 142–174; BP diastolic 57–84; PULSE 58–70; RESP 16–20; TEMP 36.7–36.9; O2SAT 94–97
[2022-01-07] MEDS: CARBOXYMETHYLCELLULOSE (REFRESH PLUS) TEARS 1 DROP EYE-BOTH ×3 (00:17→21:42)
--- NOTE | 2022-01-07 05:10 | PC.NURSE ---
END OF SHIFT NOTE: PT IS PLEASANT AND COOPERATIVE WITH CARES. PT WAS TURNED AND REPOSITIONED NOC. PT IS INCONTINENT OF BOWEL AND BLADDER. VSS ON RA; AFEBRILE. REDNESS TO GROIN, SCROTUM, BOTTOM; BARRIER CREAM APPLIED. REDNESS TO RIGHT EYE; RELIEF FROM REFRESHER DROPS.
[2022-01-07 07:28] LABS: Basophils Absolute Auto 0.02 K/uL (0.00-0.30); Basophils Percent Auto 0.3 % (0.0-3.0); Eosinophils Absolute Auto 0.28 K/uL (0.00-0.50); Eosinophils Percent Auto 4.6 % (0.0-7.0); Hematocrit 25.3 % (37.0-53.0); Lymphocytes Percent Auto 14.5 % (20-44); Mean Corpuscular HGB Conc 31 gm/dL (32-36); Mean Corpuscular Hemoglobin 31 pg (26-34); Mean Corpuscular Volume 100 fL (80-100); Monocytes Percent Auto 8.7 % (0.0-11.0); Neutrophils Absolute Auto 4.35 K/uL (1.7-7.0); Neutrophils Percent Auto 71.9 % (42.0-72.0); Platelet Count* 283 K/uL (140-440); RDW Coefficient of Variation % 13.5 % (11.5-15.5); Red Blood Count 2.53 m/uL (4.30-5.90); White Blood Count* 6.06 K/uL (4.50-11.00)
[2022-01-07 07:38] LABS: Chloride* 109 mmol/L (96-114); Hemoglobin* 7.9 gm/dL (13.5-17.5); Potassium* 4.1 mmol/L (3.6-5.1); Slide Review Reflex No; Sodium* 140 mmol/L (135-149)
[2022-01-07 07:41] LABS: Blood Urea Nitrogen* 59 mg/dL (7-30); Carbon Dioxide* 20 mmol/L (20-32); Creatinine* 2.3 mg/dL (0.5-1.5); Est. Creatinine Clearance* 28.19; Estimated Glomerular Filt Rate 28 ml/min
[2022-01-07 07:42] LABS: Calcium* 8.6 mg/dL (8.4-10.6); Glucose* 112 mg/dL (60-115)
[2022-01-07] MEDS: ISOSORBIDE MONONITRATE ER 30 MG TAB 120 MG PO ×2 (07:59→17:50)
[2022-01-07] MEDS: FUROSEMIDE 40 MG TABLET PO ×2 (07:59→17:50)
[2022-01-07] MEDS: TAMSULOSIN HCL 0.4 MG CAPSULE 0.8 MG PO (09:31)
[2022-01-07] MEDS: HYDRALAZINE 25 MG TABLET PO ×3 (09:31→21:43)
[2022-01-07] MEDS: carvediloL 25 MG TABLET PO ×2 (09:32→21:42)
[2022-01-07] MEDS: ATORVASTATIN CALCIUM 40 MG TABLET 80 MG PO (09:32)
[2022-01-07] MEDS: CLOPIDOGREL 75 MG TABLET PO (09:33)
[2022-01-07] MEDS: APIXABAN 5 MG TABLET PO ×2 (09:33→21:42)
--- NOTE | 2022-01-07 12:54 | PM.IMPN1 ---
Progress Note: A&P Assessment and plan (1) Fall: Status: Acute (2) Anemia: Status: Chronic (3) Chronic kidney insufficiency: Status: Chronic Plan Plan 1. Fall; suspected possible mechanical 2. Hx of CKD III/IV 3. Anemia of Chronic Disease 4. Hx of Atrial Fibrillation 5. Hx of HTN 6. Generalized weakness 7. Hx of medication noncompliance Plan -serial hgb stable; GI bleed ruled out -IVF; discontinue -PT, OT, SW consult -awaiting placement Subjective Date Seen: 01/07/22 Interval history: patient complains of dry eyes he has no other complaints denies melena or hematochezia Exam Narrative: Exam Narrative: Gen: NAD HEENT: NCAT EOMI MMM CV: RRR normal s1 s2 LCTAB Abd: soft, nt, nd Neuro: Alert and oriented; at baseline state Const: Vital Signs, click to edit/add: Vital Signs - 24 hr 01/06/22 15:00 01/06/22 16:00 01/06/22 19:09 Temperature 98.6 F 98.6 F Pulse Rate [Left R adial] 66 66 62 Pulse Rate [orthos tatic lying Left P ulse Oximeter] Pulse Rate [orthos tatic sitting Puls e Oximeter] Pulse Rate [orthos tatic standing Lef t Pulse Oximeter] Respiratory Rate 16 16 16 Blood Pressure [Le ft Arm] 145/61 H 152/77 H Blood Pressure [or thostatic lying Le ft Arm] Blood Pressure [or thostatic sitting Left Arm] Blood Pressure [or thostatic standing Left Arm] Pulse Oximetry 95 96 Oxygen Delivery Me thod Room Air Room Air 01/06/22 23:00 01/06/22 23:00 01/07/22 03:00 Temperature 97.7 F 98.5 F Pulse Rate [Left R adial] 62 62 64 Pulse Rate [orthos tatic lying Left P ulse Oximeter] Pulse Rate [orthos tatic sitting Puls e Oximeter] Pulse Rate [orthos tatic standing Lef t Pulse Oximeter] Respiratory Rate 18 18 20 Blood Pressure [Le ft Arm] 144/72 H 155/62 H Blood Pressure [or thostatic lying Le ft Arm] Blood Pressure [or thostatic sitting Left Arm] Blood Pressure [or thostatic standing Left Arm] Pulse Oximetry 97 96 Oxygen Delivery Me thod Room Air Room Air 01/07/22 08:11 01/07/22 10:37 01/07/22 11:00 Temperature 98.2 F 98.2 F Pulse Rate [Left R adial] 64 70 Pulse Rate [orthos tatic lying Left P ulse Oximeter] 66 Pulse Rate [orthos tatic sitting Puls e Oximeter] 69 Pulse Rate [orthos tatic standing Lef t Pulse Oximeter] 70 Respiratory Rate 16 18 Blood Pressure [Le ft Arm] 165/84 H 152/72 H Blood Pressure [or thostatic lying Le ft Arm] 153/70 H Blood Pressure [or thostatic sitting Left Arm] 163/70 H Blood Pressure [or thostatic standing Left Arm] 152/72 H Pulse Oximetry 96 94 Oxygen Delivery Me thod Room Air Room Air Labs Labs: Laboratory Results - last 24 hr 01/07/22 01/07/22 06:11 06:11 WBC 6.06 RBC 2.53 L Hgb 7.9 L* Hct 25.3 L MCV 100 MCH 31 MCHC 31 L RDW Coeff of Ashish 13.5 Plt Count 283 Neut % (Auto) 71.9 Lymph % (Auto) 14.5 L [place] % (Auto) 8.7 Eos % (Auto) 4.6 Baso % (Auto) 0.3 Neut # (Auto) 4.35 Lymph # (Auto) 0.90 [place] # (Auto) 0.50 Eos # (Auto) 0.28 Baso # (Auto) 0.02 Abs Immat Gran (auto) 0.00 Sodium 140 Potassium 4.1 Chloride 109 Carbon Dioxide 20 BUN 59 H Creatinine 2.3 H Estimated Creat Clear 28.19 Estimated GFR 28 Glucose 112 Calcium 8.6
--- NOTE | 2022-01-07 13:08 | PC.SOCIAL ---
Late entry note from 01/06/22. PT/OT recommending pt have a short-term rehab stay at a SNF. Met with Pt in pt's room to discuss discharge planning. Pt is aware and agreeable to a ST rehab stay at a SNF. Pt would like to go to SNF as close to [place] as possible. Called the following SNF for potential placement. 1. [facility]- Phone call to Perla in admissions. Perla will assess. Faxed referral to [phone]. 2. [facility]- Phone call to Priscila in admissions. Left a voicemail and faxed referral to [phone]. 3. [facility]- Phone call to Sangeeta in admissions. Sangeeta will assess pt. Faxed referral to [phone]. 4. [facility]- Phone call to Lori in admissions. Lori informed that they do not have any male beds open.
--- NOTE | 2022-01-07 14:56 | PC.SOCIAL ---
Discharge planning: Received call back from [facility] stating they are considering pt for admit and had questions about payment if pt's stay exceeded Medicare coverage. Met with pt who states if needed, he would apply for Medical Assistance. Spoke with Sangeeta at [facility] who states they do not take Medical Assistance pending so are declining pt admission due to potential for him to stay past the Medicare coverage. Pt is most interested in a placement in [place] or as close by as possible. [facility], [facility] and [facility] do not have availability. Called and faxed information to [place] [facility] [place] [facility]. Called Tam[facility] and left message requesting call back. Awaiting calls back with decision on admit. floorworker lasting to follow up as needed.
--- NOTE | 2022-01-07 16:23 | PC.SOCIAL ---
Discharge plan: Pt has been accepted to [facility] for short term rehab. Pt states he plans to return home when the insurance stops covering his stay at the facility. [facility] has requested pt be discharged to them at about 11:00 on Monday01/10/22. Pt is requesting his brother transport him in his own vehicle and asked protective services social worker to call his brother to share this plan. Called brother James, who is aware and agrees with this discharge plan. James will be at the hospital to provide transportation on Monday at 11:00. [employer] worker to follow up on Monday.
[2022-01-07] MEDS: PANTOPRAZOLE SODIUM 40 MG INJ IVP (16:59)
--- NOTE | 2022-01-07 17:39 | PC.NURSE ---
Shift Summary: patient pleasant and cooperative. Up with one assist ,walker and gait belt. Incont of bladder. Groin red, cares performed and barrier cream applied. Vitals stable and WNL. Denies pain or SOB.
[2022-01-08 03:00] VITALS: BP 164/68; PULSE 62; RESP 18; TEMP 37; O2SAT 95
--- NOTE | 2022-01-08 06:09 | PC.NURSE ---
END OF SHIFT NOTE: PT PLEASANT AND COOPERATIVE. INCONTINENT OF BLADDER. BRIEF CHANGED AND PT REPOSITIONED NOC. VSS ON RA; AFEBRILE. NYSTATIN POWDER APPLIED TO REDDENED GROIN AREA. REFRESHER DROPS TO PT?S RIGHT EYE. UNEVENTFUL NIGHT.
--- NOTE | 2022-01-08 07:57 | P.IMPN_ITS ---
Progress Note: A&P Assessment and plan (1) Fall: Status: Acute Assessment and Plan: - appreciate input from OT/PT - SNF placement at Monday, 01/10 (2) Anemia: Problem details: Anemia of chronic disease 2/2 CKD Status: Chronic Assessment and Plan: - baseline (3) Ingrown toenail without infection: Problem details: Right medial Status: Acute Assessment and Plan: - vaseline over the area to help with softening nail, no evidence of acute infection (4) Stage 4 chronic kidney disease: Problem details: Dr Ramey is outpatient Patient Financial Services Specialist Status: Acute Assessment and Plan: - baseline (5) Non-insulin dependent type 2 diabetes mellitus: Problem details: Last A1C 5.6 (11/2021) Status: Acute Plan - per above - continue home medications for chronic conditions - SNF placement 01/10 Subjective Date Seen: 01/08/22 Interval history: No acute events overnight. Kobe has an ingrown toenail of his RIGHT great toe, minimal discomfort. No other concerns for me today. Exam Narrative: Exam Narrative: GEN: Alert and oriented, appears chronically ill but baseline, nontoxic HEENT: Normal external ears, EOMIs bilaterally CV: RRR, No concerning murmurs R: LCTA bilaterally without concerning wheezing, rales, or rhonchi Ext: wwp, no concerning edema. Ingrown toenail, R medial, no s/sx of infection Skin: Scattered bruising, no other concerning findings on exposed skin Neuro: Nonfocal Psych: Appropriate Const: Vital Signs, click to edit/add: Vital Signs - 24 hr 01/07/22 08:11 01/07/22 10:37 01/07/22 11:00 Temperature 98.2 F 98.2 F Pulse Rate [Left R adial] 64 70 Pulse Rate [orthos tatic lying Left P ulse Oximeter] 66 Pulse Rate [orthos tatic sitting Puls e Oximeter] 69 Pulse Rate [orthos tatic standing Lef t Pulse Oximeter] 70 Respiratory Rate 16 18 Blood Pressure [Le ft Arm] 165/84 H 152/72 H Blood Pressure [or thostatic lying Le ft Arm] 153/70 H Blood Pressure [or thostatic sitting Left Arm] 163/70 H Blood Pressure [or thostatic standing Left Arm] 152/72 H Pulse Oximetry 96 94 Oxygen Delivery Me thod Room Air Room Air 01/07/22 15:54 01/07/22 21:30 01/07/22 23:20 Temperature 98.1 F 98.0 F Pulse Rate [Left R adial] 66 58 L 60 Pulse Rate [orthos tatic lying Left P ulse Oximeter] Pulse Rate [orthos tatic sitting Puls e Oximeter] Pulse Rate [orthos tatic standing Lef t Pulse Oximeter] Respiratory Rate 18 20 18 Blood Pressure [Le ft Arm] 142/57 H 168/75 H Blood Pressure [or thostatic lying Le ft Arm] Blood Pressure [or thostatic sitting Left Arm] Blood Pressure [or thostatic standing Left Arm] Pulse Oximetry 96 97 Oxygen Delivery Me thod Room Air Room Air 01/07/22 23:20 01/08/22 03:00 Temperature 98.0 F 98.6 F Pulse Rate [Left R adial] 60 62 Pulse Rate [orthos tatic lying Left P ulse Oximeter] Pulse Rate [orthos tatic sitting Puls e Oximeter] Pulse Rate [orthos tatic standing Lef t Pulse Oximeter] Respiratory Rate 18 18 Blood Pressure [Le ft Arm] 174/83 H 164/68 H Blood Pressure [or thostatic lying Le ft Arm] Blood Pressure [or thostatic sitting Left Arm] Blood Pressure [or thostatic standing Left Arm] Pulse Oximetry 95 95 Oxygen Delivery Ne thod Room Air Room Air
[2022-01-08] MEDS: ISOSORBIDE MONONITRATE ER 30 MG TAB 120 MG PO ×2 (08:09→17:02)
[2022-01-08] MEDS: FUROSEMIDE 40 MG TABLET PO ×2 (08:09→17:37)
[2022-01-08 09:08] VITALS: BP 174/60; PULSE 64; RESP 18; TEMP 36.9; O2SAT 95
[2022-01-08] MEDS: NYSTATIN POWDER 1 APPLIC TOPICAL ×2 (09:19→21:58)
[2022-01-08] MEDS: CARBOXYMETHYLCELLULOSE (REFRESH PLUS) TEARS 1 DROP EYE-BOTH ×3 (09:19→21:56)
[2022-01-08] MEDS: APIXABAN 5 MG TABLET PO ×2 (09:19→21:55)
[2022-01-08] MEDS: CLOPIDOGREL 75 MG TABLET PO (09:20)
[2022-01-08] MEDS: ATORVASTATIN CALCIUM 40 MG TABLET 80 MG PO (09:20)
[2022-01-08] MEDS: HYDRALAZINE 25 MG TABLET PO ×3 (09:20→21:57)
[2022-01-08] MEDS: TAMSULOSIN HCL 0.4 MG CAPSULE 0.8 MG PO (09:20)
[2022-01-08] MEDS: carvediloL 25 MG TABLET PO ×2 (09:20→21:56)
[2022-01-08 12:17] VITALS: BP 153/77; PULSE 62; RESP 16; TEMP 36.8; O2SAT 94
[2022-01-08 15:25] VITALS: BP 147/82; PULSE 65; RESP 18; TEMP 36.9; O2SAT 96
[2022-01-08] MEDS: PANTOPRAZOLE SODIUM 40 MG INJ IVP (17:02)
[2022-01-08] MEDS: SODIUM CHLORIDE 0.9 % (FLUSH) 10 ML SYRINGE 5 ML IVF ×2 (17:02→21:57)
--- NOTE | 2022-01-08 17:08 | PC.NURSE ---
Shift Summary: Patient up in chair for meals, requested only diet coke for lunch. Vitals stable and WNL. T&R q2h while in bed. Continues to be incont. Denies pain or SOB. Right eye continues to be irritated, managed with eye drops and warm moist wash cloths.
[2022-01-08 21:50] VITALS: BP 159/70; PULSE 64; RESP 20; TEMP 36.8; O2SAT 97
[2022-01-08 23:05] VITALS: BP 144/69; PULSE 66; PULSE 96; RESP 18; TEMP 37.3; O2SAT 96
[2022-01-09 03:00] VITALS: BP 162/71; PULSE 66; RESP 18; TEMP 36.8; O2SAT 96
--- NOTE | 2022-01-09 06:27 | PC.NURSE ---
END OF SHIFT NOTE: PT PLEASANT AND COOPERATIVE WITH CARES. INCONTINENT OF URINE. REDNESS TO GROIN, SCROTUM AND BUTTOCKS HAS IMPROVED. NYSTATIN POWDER APPLIED TO GROIN AREA. ALOE VESTA BARRIER CREAM APPLIED TO SCROTUM AND BUTTOCKS. PT DENIES CP, SOB, N/V. VSS ON RA.
[2022-01-09 07:00] VITALS: BP 168/76; PULSE 66; RESP 18; TEMP 36.9; O2SAT 95
[2022-01-09 07:19] LABS: Basophils Absolute Auto 0.02 K/uL (0.00-0.30); Basophils Percent Auto 0.3 % (0.0-3.0); Eosinophils Absolute Auto 0.24 K/uL (0.00-0.50); Eosinophils Percent Auto 4.2 % (0.0-7.0); Hematocrit 25.1 % (37.0-53.0); Immature Granulocytes Abs Auto 0.01 K/uL (0.00-0.30); Lymphocytes Percent Auto 16.5 % (20-44); Mean Corpuscular HGB Conc 32 gm/dL (32-36); Mean Corpuscular Hemoglobin 31 pg (26-34); Mean Corpuscular Volume 98 fL (80-100); Monocytes Percent Auto 10.4 % (0.0-11.0); Neutrophils Absolute Auto 3.94 K/uL (1.7-7.0); Neutrophils Percent Auto 68.4 % (42.0-72.0); Platelet Count* 282 K/uL (140-440); RDW Coefficient of Variation % 13.5 % (11.5-15.5); Red Blood Count 2.56 m/uL (4.30-5.90); White Blood Count* 5.76 K/uL (4.50-11.00)
[2022-01-09 07:20] LABS: Slide Review Reflex No
[2022-01-09 07:36] LABS: Chloride* 106 mmol/L (96-114); Sodium* 138 mmol/L (135-149)
[2022-01-09 07:37] LABS: Potassium* 3.8 mmol/L (3.6-5.1)
[2022-01-09 07:39] LABS: Creatinine* 2.3 mg/dL (0.5-1.5); Est. Creatinine Clearance* 28.19; Estimated Glomerular Filt Rate 28 ml/min
[2022-01-09 07:40] LABS: Blood Urea Nitrogen* 51 mg/dL (7-30); Calcium* 8.5 mg/dL (8.4-10.6); Carbon Dioxide* 21 mmol/L (20-32); Glucose* 124 mg/dL (60-115)
[2022-01-09] MEDS: TAMSULOSIN HCL 0.4 MG CAPSULE 0.8 MG PO (08:32)
[2022-01-09] MEDS: ATORVASTATIN CALCIUM 40 MG TABLET 80 MG PO (08:32)
[2022-01-09] MEDS: ISOSORBIDE MONONITRATE ER 30 MG TAB 120 MG PO ×2 (08:32→17:29)
[2022-01-09] MEDS: CLOPIDOGREL 75 MG TABLET PO (08:33)
[2022-01-09] MEDS: CARBOXYMETHYLCELLULOSE (REFRESH PLUS) TEARS 1 DROP EYE-BOTH ×2 (08:33→20:11)
[2022-01-09] MEDS: carvediloL 25 MG TABLET PO ×2 (08:33→20:12)
[2022-01-09] MEDS: APIXABAN 5 MG TABLET PO ×2 (08:33→20:12)
[2022-01-09] MEDS: FUROSEMIDE 40 MG TABLET PO ×2 (08:33→17:30)
[2022-01-09 11:00] VITALS: BP 171/64; PULSE 64; RESP 18; TEMP 36.9; O2SAT 97
[2022-01-09] MEDS: HYDRALAZINE 25 MG TABLET PO ×3 (11:14→20:10)
[2022-01-09] MEDS: NYSTATIN POWDER 1 APPLIC TOPICAL ×2 (11:14→20:12)
[2022-01-09] MEDS: SODIUM CHLORIDE 0.9 % (FLUSH) 10 ML SYRINGE 5 ML IVF ×2 (11:15→20:11)
[2022-01-09 15:00] VITALS: BP 113/62; PULSE 66; RESP 18; TEMP 36.9; O2SAT 94
--- NOTE | 2022-01-09 15:22 | P.IMPN_ITS ---
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 Reviewed impressions and plans with patient. 2. Recommended we proceed with discharge disposition as we are striving to achieve on his behalf. 3. Patient tells me his brother will be picking him up and drive him to the halfway when it is time. Time Spent With Patient Total time spent: 20 minutes Subjective Time Seen by Provider: 11:30 Date Seen: 01/09/22 Interval history: No acute events overnight. Kobe has an ingrown toenail of his RIGHT great toe, minimal discomfort. No other concerns for me today. Hospital day 5. Patient acknowledges he is too weak to be able to return home. He is ready to move on to a halfway when a room is available to help him in that regard. Denies chest heaviness, tightness, pressure, or pain. Denies dyspnea at rest, paroxysmal nocturnal dyspnea, orthopnea. Denies new edema. Denies syncope or near-syncope. Denies nausea vomiting. Tolerating oral intake. Exam Narrative: Exam Narrative: Awake, alert, oriented to self, place, time. Also oriented to situation. Appears comfortable, no acute distress. Articulate, cooperative. Friendly. Mood and affect are congruent. Lungs clear to auscultation. Heart tones with regular rhythm. Abdomen with active bowel sounds, soft, nontender. Skin is warm, dry, intact. No focal motor neurologic deficits. Const: Vital Signs, click to edit/add: Vital Signs - 24 hr 01/08/22 15:25 01/08/22 21:50 01/08/22 23:05 Temperature 98.5 F 98.2 F Pulse Rate [Left R adial] 65 66 Pulse Rate [Pulse Oximeter] 64 96 Respiratory Rate 18 20 18 Blood Pressure [Le ft Arm] 147/82 H 159/70 H Pulse Oximetry 96 97 Oxygen Delivery Me thod Room Air Room Air 01/08/22 23:05 01/09/22 03:00 01/09/22 07:00 Temperature 99.2 F 98.2 F Pulse Rate [Left R adial] Pulse Rate [Pulse Oximeter] 66 66 66 Respiratory Rate 18 18 18 Blood Pressure [Le ft Arm] 144/69 H 162/71 H Pulse Oximetry 96 96 Oxygen Delivery Me thod Room Air Room Air 01/09/22 07:00 01/09/22 11:00 Temperature 98.5 F 98.4 F Pulse Rate [Left R adial] Pulse Rate [Pulse Oximeter] 66 64 Respiratory Rate 18 18 Blood Pressure [Le ft Arm] 168/76 H 171/64 H Pulse Oximetry 95 97 Oxygen Delivery Me thod Room Air Room Air Documenting provider has reviewed patient's vital signs: yes Labs Labs: Laboratory Results - last 24 hr 01/09/22 01/09/22 06:05 06:05 WBC 5.76 RBC 2.56 L Hgb 8.0 L Hct 25.1 L MCV 98 MCH 31 MCHC 32 RDW Coeff of Ashish 13.5 Plt Count 282 Neut % (Auto) 68.4 Lymph % (Auto) 16.5 L [place] % (Auto) 10.4 Eos % (Auto) 4.2 Baso % (Auto) 0.3 Neut # (Auto) 3.94 Lymph # (Auto) 1.00 [place] # (Auto) 0.60 Eos # (Auto) 0.24 Baso # (Auto) 0.02 Abs Immat Gran (auto) 0.01 Sodium 138 Potassium 3.8 Chloride 106 Carbon Dioxide 21 BUN 51 H Creatinine 2.3 H Estimated Creat Clear 28.19 Estimated GFR 28 Glucose 124 H Calcium 8.5
[2022-01-09] MEDS: PANTOPRAZOLE SODIUM 40 MG INJ IVP (17:29)
--- NOTE | 2022-01-09 18:44 | PC.NURSE ---
Shift note [id number]: Pt. oriented and pleasant. Pt. up to chair for meals. Vitals stable and WNL. T&R q2h while in bed. Continues to be incont. of bowel and bladder and encouraged pt. to go to the BR. Pt. denies pain or SOB. Right eye continues to be irritated, managed with eye drops. Plan for pt. is to go to SNF. Pt. will go to [facility] 01/10.
[2022-01-09 19:00] VITALS: BP 122/72; PULSE 66; RESP 18; TEMP 36.9; O2SAT 95
[2022-01-09 22:57] VITALS: BP 145/71; PULSE 64; RESP 18; TEMP 37.1; O2SAT 96
[2022-01-10 03:00] VITALS: BP 144/81; PULSE 67; RESP 16; O2SAT 93
--- NOTE | 2022-01-10 04:59 | PC.NURSE ---
PATIENT PLEASANT AND COOPERATIVE, TURN AND REPO Q2H, INCONTINENT ON BOWEL AND BLADDER, NYSTATIN TO GROIN FOLDS, DECLINING PAIN.
[2022-01-10 08:17] VITALS: BP 153/74; PULSE 66; RESP 16; TEMP 37.1; O2SAT 94
[2022-01-10] MEDS: CARBOXYMETHYLCELLULOSE (REFRESH PLUS) TEARS 1 DROP EYE-BOTH (09:27)
[2022-01-10] MEDS: carvediloL 25 MG TABLET PO (09:27)
[2022-01-10] MEDS: ATORVASTATIN CALCIUM 40 MG TABLET 80 MG PO (09:27)
[2022-01-10] MEDS: TAMSULOSIN HCL 0.4 MG CAPSULE 0.8 MG PO (09:28)
[2022-01-10] MEDS: ISOSORBIDE MONONITRATE ER 30 MG TAB 120 MG PO ×2 (09:28→09:48)
[2022-01-10] MEDS: FUROSEMIDE 40 MG TABLET PO (09:29)
[2022-01-10] MEDS: HYDRALAZINE 25 MG TABLET PO (09:29)
[2022-01-10] MEDS: APIXABAN 5 MG TABLET PO (09:29)
[2022-01-10] MEDS: CLOPIDOGREL 75 MG TABLET PO (09:30)
[2022-01-10] MEDS: NYSTATIN POWDER 1 APPLIC TOPICAL (09:47)
--- NOTE | 2022-01-10 11:17 | PC.SOCIAL ---
Discharge plan: Called [facility] and spoke with Mick in admitting who confirmed they are expecting pt for admit today. Mick requested pt leave the hospital at noon. Called brother, James, who is providing transport. He is able to pick pt up at noon at the Emergency Room door for transport. Met with pt who is aware and agrees with this plan. PT was provided with copy of the Medicare Important Message and states he agrees with discharge plan for today. PAS completed and submitted [id number].
[2022-01-10 11:25] VITALS: RESP 16; TEMP 37.1
--- NOTE | 2022-01-10 13:41 | PC.NURSE ---
Pt. transferred to [facility]. Called and left a message x 3 requesting to give [id number] report, have not received a return phone call.
--- NOTE | 2022-01-17 12:47 | PM.DS1 ---
DS: Providers Provider Time Seen by Provider: 09:00 Date Seen: 01/10/22 Date of admission: 01/07/22 13:39 Primary care physician: Jose Luis Patel MD Admitting Clinician: Benny Salgado MD Consults: 01/05/22 16:38 Consult to Physical Therapy [CONS] Routine Comment: Reason(s) for PT Consult:: Evaluate and Treat Any Restrictions?:: No Restrictions Consult to Supervisor [employer] [CONS] Routine Comment: Reason for Consult:: Discharge Planning Needs 01/05/22 16:40 Consult to Occupational Therapy [CONS] Routine Comment: Reason(s) for OT Consult:: Evaluate and Treat Any Restrictions?:: No Restrictions Attending Physician on discharge: Aureliano Reyes MD Date of Discharge: 01/10/22 DS: Diagnosis Discharge Diagnosis (1) Fall: Status: Acute (2) Weakness generalized: Status: Acute (3) Non-insulin dependent type 2 diabetes mellitus: Status: Acute Problem details: Last A1C 5.6 (11/2021) (4) Anemia: Status: Chronic Problem details: 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 The patient fell out his bed. He does not think he hit his head. This morning his brother came to his residence and found him in his bedroom on the floor. He was too weak to get up. He denied LOC. He denied chest pain, chest pressure, sob. He denies melena or hematochezia. He presented to ED where notable workup showed hgb 7.5, Cr 2.5 (Baseline 2.3-24). CT head and cervical spine showed no acute fx or bleed; CXR no acute infiltrate. Patient states he can no longer live alone and needs NH referral; placement. He currently feels at baseline state. Over time in hospital, his generalized weakness became a major problem, such that it became apparent that he does in fact, require skilled nursing rehabilitation efforts to ascertain if he can ever return to independent living. Status at Discharge Functional status at discharge: uses cane/walker Overall status at discharge: patient is not back to baseline Time Spent with Patient Time attestation: Total time spent providing and/or coordinating discharge services: Time spent: Greater than 30 minutes Discharge Plan Discharge Disposition: Xfer Other Date of Admission: 01/07/22 13:39 Attending Provider on Discharge: Aureliano Reyes Primary Care Provider: Jose Luis Patel Condition: Improved Anticipated Discharge Date/Time: 01/10/22 11:00 Discharge Medications: New acetaminophen 325 mg Tablet 500 mg PO Q6H PRN14 Days Qty: 50 0RF nystatin 100,000 unit/gram Powder 1 applic topical BID Qty: 60 0RF carboxymethylcellulose sodium [Refresh Plus] 0.5 % Dropperette 1 drp ophthalmic (eye) BID PRN (Reason: Ocular lubricant) 30 Days Qty: 0.5 0RF Continued amlodipine 5 mg tablet 5 mg PO DAILY Label Comments: TAKE 1 TABLET BY MOUTH ONCE DAILY Eliquis 5 mg tablet 5 mg PO BID atorvastatin 80 mg tablet 80 mg PO DAILY Label Comments: TAKE 1 TABLET BY MOUTH AT BEDTIME carvedilol 25 mg tablet 25 mg PO Q12H Label Comments: TAKE 1 TABLET BY MOUTH IN THE MORNING AND 1 IN THE EVENING WITH MEALS clopidogrel 75 mg tablet 75 mg PO DAILY Label Comments: TAKE 1 TABLET BY MOUTH ONCE DAILY furosemide 40 mg tablet 40 mg PO BID Label Comments: TAKE 1 TABLET BY MOUTH EVERY MORNING AND 1 TABLET EVERY AFTERNOON. HOLD IF WEIGHT LESS THAN 220. TAKE 2 TABS TWICE DAILY IF WEIGHT GREATER THAN 230 glipizide 10 mg tablet 10 mg PO DAILY Label Comments: TAKE 1 TABLET BY MOUTH ONCE DAILY BEFORE A MEAL hydralazine 25 mg tablet 25 mg PO TID Label Comments: TAKE 1 TABLET BY MOUTH EVERY 8 HOURS hydrocodone-acetaminophen 7.5-325 mg tablet 1 tab PO Q6H PRN Label Comments: TAKE 1 TABLET BY MOUTH EVERY 6 HOURS NEEDED FOR PAIN . DO NOT EXCEED 4000 MG OF ACETAMINOPHEN PER 24 HOURS isosorbide mononitrate 120 mg tablet extended release 24 hr 120 mg PO .bidac Label Comments: TAKE 1 TABLET BY MOUTH TWICE DAILY BEFORE MEAL(S) omeprazole 20 mg capsule,delayed release(DR/EC) 20 mg PO DAILY Label Comments: TAKE 1 CAPSULE BY MOUTH ONCE DAILY BEFORE A MEAL tamsulosin 0.4 mg capsule 0.8 mg PO DAILY Label Comments: TAKE 2 CAPSULES BY MOUTH ONCE DAILY AFTER A MEAL Discharge Orders: Discharge Order (Routine); Ordered 01/10/22 Ordered By: Aureliano Reyes Activity Level: Activity as Tolerated Activity Detail: PT, OT to evaluate and treat Discharge Diet: 2 gm Sodium Follow Up Appointments: Jose Luis Patel MD [Primary Care Provider] - Forms: [facility] Info Instructions Hospital Course: Kobe Melgar is a 76 year old male with past medical history of CKD3, Anemia of CKD, hx of Atrial fibrillation (on Eliquis), HTN presenting for evaluation of fall. The patient fell out his bed. He does not think he hit his head. This morning his brother came to his residence and found him in his bedroom on the floor. He was too weak to get up. He denied LOC. He denied chest pain, chest pressure, sob. He denies melena or hematochezia. He presented to ED where notable workup showed hgb 7.5, Cr 2.5 (Baseline 2.3-24). CT head and cervical spine showed no acute fx or bleed; CXR no acute infiltrate. Patient states he can no longer live alone and needs NH referral; placement. He currently feels at baseline state. Over time in hospital, his generalized weakness became a major problem, such that it became apparent that he does in fact, require skilled nursing rehabilitation efforts to ascertain if he can ever return to independent living. Discharge Comments: Kobe Melgar is a 76 year old male with past medical history of CKD3, Anemia of CKD, hx of Atrial fibrillation (on Eliquis), HTN presenting for evaluation of fall. The patient fell out his bed. He does not think he hit his head. This morning his brother came to his residence and found him in his bedroom on the floor. He was too weak to get up. He denied LOC. He denied chest pain, chest pressure, sob. He denies melena or hematochezia. He presented to ED where notable workup showed hgb 7.5, Cr 2.5 (Baseline 2.3-24). CT head and cervical spine showed no acute fx or bleed; CXR no acute infiltrate. Patient states he can no longer live alone and needs NH referral; placement. He currently feels at baseline state. Over time in hospital, his generalized weakness became a major problem, such that it became apparent that he does in fact, require skilled nursing rehabilitation efforts to ascertain if he can ever return to independent living.
== END 2022-01-10 12:26 | DRG 641 ==
LOC: ED 15:42 → MEDSURG 16:01
PROVIDERS: Family Medicine; Admitting Provider Hospitalist; Emergency Provider Family Medicine; PCP Family Medicine; Visit Provider Hospitalist
DX: R62.7 Adult failure to thrive (principal); N18.4 Chronic kidney disease, stage 4 (severe); R53.1 Weakness; I12.9 Hypertensive chronic kidney disease with stage 1 through stage 4 chronic kidney disease, or unspecified chronic kidney disease; D63.1 Anemia in chronic kidney disease; E11.22 Type 2 diabetes mellitus with diabetic chronic kidney disease; B35.8 Other dermatophytoses; L60.0 Ingrowing nail; R00.1 Bradycardia, unspecified; I44.0 Atrioventricular block, first degree; I48.91 Unspecified atrial fibrillation; Z79.01 Long term (current) use of anticoagulants; R32 Unspecified urinary incontinence; W06.XXXA Fall from bed, initial encounter; Y92.003 Bedroom of unspecified non-institutional (private) residence as the place of occurrence of the external cause
CPT/HCPCS: 36415; 70450; 70480; 71045; 72125; 80048; 80053; 81001; 82270; 82550; 82947; 82962; 83605; 83735; 85018; 85025; 86140; 86850; 86900; 86901; 87635; 93005; 94761; 97116; 97161; 97165; 97530; 97535; 99285; A9270; C9113; G0378; J7120